=== PATIENT | female | born 2000 | race African-American/Black ===

== ENCOUNTER 2024-06-22 14:09 | Emergency (ER) | payer MEDICAID, SELFPAY ==
[2024-06-22] VITALS (7 sets, daily range): BP systolic 114–142; BP diastolic 83–92; PULSE 92–135; RESP 13–20; TEMP 37.2–38.9; O2SAT 96–100
--- NOTE | ~2024-06-22 | CT_ITS ---
CT soft tissue neck w con Ordering provider: Sarah Britt PA-C History: 24 years Female with . [employer]? . Comparison: None. Technique: CT soft tissues neck was performed with contrast. . Automated exposure control and iterat lv reconstruction technique were employed. The dose-length product was 468.29 mGy-cm. Findings: LOWER HEAD: The visualized brain parenchyma, optic globes/orbits and mastoids are normal. The visua lized paranasal sinuses are well aerated. SALIVARY GLANDS: Normal. THYROID: Normal. SUPRAHYOID DEEP SPACES: Enlarged lymph nodes are seen in both sides submandibular areas with the left measures 2.9 cm and the right 2.8 cm. Clinical Small lymph nodes seen in the posterior triangles. CAROTID ARTERIES: Normal. JUGULAR VEINS: Normal. TONSILS: Grossly enlarged tonsils. Hypodense areas seen in both tonsils with possibility of an early abscess formation cannot be excluded. Focal area in the right tonsil is seen which measures 9 mm. Cli nical correlation advised. ORAL CAVITY: Partially obscured by dental amalgam but normal as visualized. PHARYNX, LARYNX AND TRACHEA: Slight narrowing of the opacity seen at the level of the tonsils. Otherw ise, Patent and normal. No prevertebral soft tissue swelling. SUPERFICIAL SOFT TISSUES: Normal. No lymphadenopathy or neck mass. THORACIC INLET/VISUALIZED UPPER CHEST: Normal. SKELETAL: Normal. IMPRESSION: 1. Grossly Enlarged tonsils with areas of increased density which may be due to inflammatory changes or early abscess formation. Clinical correlation advised. Early focal abscess formation the right to nsil is not excluded. 2. Bilateral submandibular enlarged lymph nodes Reviewed, dictated and finalized at location A. IMPRESSION: 1. Grossly Enlarged tonsils with areas of increased density which may be due t o inflammatory changes or early abscess formation. Clinical correlation advised . Early focal abscess formation the right tonsil is not excluded. 2. Bilateral submandibular enlarged lymph nodes
--- NOTE | ~2024-06-22 | XR_ITS ---
CHEST RADIOGRAPH, PA AND LATERAL CLINICAL HISTORY: fever . COMPARISON: None available TECHNIQUE: PA and lateral views of the chest. FINDINGS The cardiomediastinal silhouette is unremarkable. The lungs are clear. Visualized osseous structures and soft tissues are unremarkable. IMPRESSION: No focal infiltrate or effusion. Reviewed, dictated and finalized at location A.
[2024-06-22 14:59] LABS: Strep Group A RT-PCR NOT DETECTED (Negative)
[2024-06-22] MEDS: SODIUM CHLORIDE 0.9% IV 1,000 ML 999 ML IV CONT ×2 (15:04→16:27)
[2024-06-22] MEDS: ONDANSETRON INJ 4 MG/2 ML VIAL IV PUSH (15:05)
[2024-06-22] MEDS: IBUPROFEN IV 800 MG/200 ML 800 MG/200 ML BAG 400 MG IVPB (15:05)
[2024-06-22 15:16] LABS: Influenza A QL RT-PCR Negative (Negative); Influenza B QL RT-PCR Negative (Negative); RSV RNA, RT-PCR Negative (Negative); SARS-CoV-2 RNA PCR Negative (Negative)
--- NOTE | 2024-06-22 15:34 | ED.FEVER ---
HPI - Fever General Chief Complaint: Fever Stated Complaint: fever, ST, bodyaches, N/V Time Seen by Provider: 06/22/24 14:20 Source: patient Mode of arrival: ambulatory Limitations: no limitations History of Present Illness HPI Narrative: This is a 24-year-old female that presents to the emergency department for fevers. Ongoing since yesterday. Reports associated sore throat, nausea, vomiting. Also reports lower abdominal discomfort. She took Tylenol this morning for fever. Related Data Allergies Allergy/AdvReac Type Severity Reaction Status Date / Time No Known Allergies Allergy Verified 06/22/24 14:19 Review of Systems Review of Systems: CONSTITUTIONAL: Reports fever, ENT: Reports sore throat RESPIRATORY: Denies cough GASTROINTESTINAL: Reports abdominal pain, nausea, vomiting GENITOURINARY: Denies dysuria All systems reviewed & are unremarkable except as noted in HPI and below PMFSH Past Medical History Medical History (Updated 06/22/24 @ 18:20 by Sarah Britt PA-C) History of hypertension Social History Social History (Updated 06/22/24 @ 15:37 by Sarah Britt PA-C) Smoking status: Never smoker Exam Narrative: GENERAL: Well-appearing, well-nourished, and in no acute distress. HEAD: Normocephalic, atraumatic. EYES: EOMI. ENT: Nares clear, no rhinorrhea or epistaxis. Mucous membranes moist. Oropharynx with tonsillar hypertrophy and exudate. Uvula midline. No trismus. Bilateral TMs pearly pepper non-bulging NECK: Supple. Tender anterior cervical adenopathy CHEST: Clear to auscultation. No respiratory distress. No wheezes rales or rhonchi HEART: Regular rate and rhythm. No murmur heard. Normal peripheral pulses. ABDOMEN: Soft, nontender, nondistended, normal active bowel sounds. EXTREMITIES: Normal range of motion. No edema. SKIN: Warm, dry, no rash. NEURO: No focal deficits. Alert and oriented x3. PSYCH: Normal mood and affect Course Consultations Consultation #1: Spoke with Dr. Dia about patient and workup who agrees with plan. Intra-tonsillar abscess will resolve with antibiotics. Does not need follow up unless this become a recurrent problem for her Date: 06/22/24 Vital Signs Vital signs: Vital Signs Temperature 102 F H 06/22/24 14:10 Pulse Rate 117 H 06/22/24 14:10 Respiratory Rate 18 06/22/24 14:10 Blood Pressure 134/90 06/22/24 14:10 Pulse Oximetry 100 06/22/24 14:10 Temperature 99.5 F 06/22/24 16:21 Pulse Rate 102 H 06/22/24 18:31 Respiratory Rate 17 06/22/24 18:31 Blood Pressure 118/83 06/22/24 18:31 Pulse Oximetry 100 06/22/24 18:31 Oxygen Delivery Room Air 06/22/24 14:15 MDM - Fever MDM Narrative Medical decision making narrative: Patient presents the emergency department for fevers and sore throat. Febrile tachycardic upon arrival, given dose of antipyretic and IV fluids with relief. CBC with leukocytosis to 13.3. Also shows anemia with hemoglobin of 9.6. Patient reports history of this. Metabolic panel with mild hypokalemia, potassium replaced. Urine without evidence of infection. Influenza, RSV, COVID, strep, mono screens are negative. Chest x-ray without acute findings. CT soft tissue neck shows grossly enlarged tonsils with possible intra tonsillar abscess. Spoke with Dr. Dia about patient and workup who agrees with plan. Intra-tonsillar abscess will resolve with antibiotics. Does not need follow up unless this become a recurrent problem for her. Will be continued on oral antibiotics. She was given warnings to return to the ER Differential Diagnosis Differential diagnosis: Likely fever of unknown origin, gastroenteritis, community acquired pneumonia, viral infection and other (Pharyngitis, UTI) Lab Data Attestation: I reviewed the patient's lab results. 06/22/24 15:49 06/22/24 15:49 Labs: Lab Results 06/22/24 06/22/24 06/22/24 Range/Units 14:27 15:49 15:50 WBC 13.3 H (4.5-10.
[2024-06-22 15:53] LABS: BEDSIDEPREGUCG Negative (Negative)
[2024-06-22 15:59] LABS: Basophils Absolute Auto 0.1 K/mm3 (0.0-0.1); Basophils Percent Auto 0.5 % (0.2-1.2); Eosinophils Absolute Auto 0.2 K/mm3 (0-0.3); Eosinophils Percent Auto 1.4 % (0-4.4); Hematocrit 30.4 % (37.0-47.0); Hemoglobin 9.6 g/dL (12.0-15.0); Immature Granulocyte Absolute 0.08 K/mm3 (0.00-0.031); Immature Granulocyte Percent A 0.6 % (0-0.5); Immature Platelet Fraction Pct 5.6 % (0.9-11.2); Lymphocytes Absolute Auto 0.76 K/mm3 (0.9-3.2); Lymphocytes Percent Auto 5.7 % (18.3-44.2); Mean Corpuscular HGB Conc 31.6 g/dl (32-36); Mean Corpuscular Hemoglobin 21.7 pg (26-34); Mean Corpuscular Volume 68.6 fl (80-100); Monocytes Absolute Auto 0.9 K/mm3 (0.1-0.6); Monocytes Percent Auto 6.6 % (2.6-8.5); Neutrophils Absolute Auto 11.3 K/mm3 (1.3-6.7); Neutrophils Percent Auto 85.2 % (45.5-73.1); Platelet Count Result 151 k/mm3 (150-375); Red Blood Count 4.43 M/mm3 (4.2-5.4); Red Cell Distribution Width 18.4 % (11.5-14.5); White Blood Count 13.3 K/mm3 (4.5-10.0)
[2024-06-22 16:04] LABS: Add Urine Microscopic? YES; Appearance Urine Clear (Clear); Bacteria Urine None Seen /hpf; Bilirubin Urine Negative (Negative); Blood Urine Negative (Negative); Color Urine Yellow (Yellow); Glucose Urine UA Negative (Negative); Ketones Urine 3+ mg/dL (Negative); Leukocyte Esterase Ur Negative LEU/UL (Negative); Nitrate Urine Negative (Negative); Non Pathogenic Casts 0-2; Protein Urine 1+ mg/dL (Negative); RBC Urine 0-2 /hpf (0-2); Specific Grav Ur 1.015 (1.001-1.035); Squamous Epithelial Cell Urine Occasional /hpf (Few); Urobilinogen Urine 0.2 mg/dL (<2.0); WBC Urine 0-5 /hpf (0-3)
[2024-06-22 16:07] LABS: Alanine Aminotransferase 10 U/L (6-35); Albumin Level 3.7 g/dL (3.5-5.1); Alkaline Phosphatase 62 U/L (38-126); Anion Gap 8 mmol/L (4-12); Aspartate Amino Transferase 20 U/L (14-36); Bilirubin,Total 0.3 mg/dL (0.2-1.3); Blood Urea Nitrogen 4 mg/dL (7-17); Calcium 8.2 mg/dL (8.4-10.2); Carbon Dioxide 24 mmol/L (22-30); Chloride 101 mmol/L (98-107); Estimated CRCL calculation 130 ml/min; Estimated Glomerular Filt Rate > 60; Glucose 104 mg/dL (65-110); Lipase 42 U/L (23-300); Potassium 3.2 mmol/L (3.4-5.0); Sodium 133 mmol/L (137-145)
[2024-06-22 16:12] LABS: Microcytosis 1+ (NORMAL); Platelet Estimate Adequate (Adequate)
[2024-06-22 16:13] LABS: Schistocytes None Seen
[2024-06-22 16:27] LABS: Magnesium 1.7 mg/dL (1.6-2.3)
[2024-06-22 16:40] LABS: Monoscreen Negative (Negative); Negative Monotest Control Negative (Negative); Positive Monotest Control Positive (Positive)
[2024-06-22] MEDS: dexAMETHasone SOD PHOS INJ 10 MG/ML 1 ML VIAL IV PUSH (18:16)
[2024-06-22] MEDS: AMPICILLIN SULB 3 GM/NS 100 ML 3 GM/100 ML VIAL IVPB (18:17)
[2024-06-22 18:28] LABS: Erythrocyte Sedimentation Rate 35 mm/hr (0-20)
[2024-06-22] MEDS: POTASSIUM CHLORIDE 20 MEQ ER TABLET 40 MEQ PO (18:29)
[2024-06-22 18:47] LABS: CRP 14.5 mg/dL (<1.0)
== END 2024-06-22 19:15 | disposition home or self-care (01) ==
PROVIDERS: Emergency Provider Physician Assistant
DX: J02.9 Acute pharyngitis, unspecified (principal); Z20.822 Contact with and (suspected) exposure to COVID-19; I10 Essential (primary) hypertension; D64.9 Anemia, unspecified
CPT/HCPCS: 36415; 70491; 71046; 80053; 81001; 81025; 83690; 83735; 85025; 85055; 85652; 86140; 86308; 87637; 87651; 96361; 96365; 96367; 96375; 99284; A9270; J0295; J1100; J1741; J2405; J7030; Q9967